=== PATIENT | male | born 1955 | race African-American/Black ===

== ENCOUNTER 2023-08-15 22:05 | Emergency (ER) | payer MEDICARE ==
[~2023-08-15] VITALS: Ht 182.9 cm; Wt 97.0 kg
[2023-08-15 22:13] VITALS: BP 144/77; TEMP 98.1; O2SAT 98
[2023-08-15 22:14] VITALS: PULSE 72; RESP 16
== END 2023-08-16 04:00 | disposition left against medical advice (07) ==
LOC: ER 22:05
DX: S61.210A Laceration without foreign body of right index finger without damage to nail, initial encounter (principal); Z53.21 Procedure and treatment not carried out due to patient leaving prior to being seen by health care provider; X58.XXXA Exposure to other specified factors, initial encounter; Y93.89 Activity, other specified; Y92.89 Other specified places as the place of occurrence of the external cause; Y99.8 Other external cause status
CPT/HCPCS: 99281